=== PATIENT | female | born 1990 | race Caucasian/White ===

== ENCOUNTER 2019-06-20 16:13 | Emergency (ER) | payer SELFPAY ==
[~2019-06-20] VITALS: Ht 172.7 cm; Wt 104.5 kg
[2019-06-20 16:21] VITALS: BP 123/73; TEMP 97.6
[2019-06-20] MEDS ORDERED: ZOVIRAX400 MG PO (16:58)
[2019-06-20] MEDS ORDERED: PREDNISONE20 MG PO (16:58)
[2019-06-20] MEDS ORDERED: LACRI-LUBE1 OIN OS (16:58)
[2019-06-20 17:20] VITALS: PULSE 80
== END 2019-06-20 17:20 | disposition home or self-care (01) ==
LOC: COL.ER 16:13
DX: G43.909 Migraine, unspecified, not intractable, without status migrainosus (principal)
CPT/HCPCS: J7512

== ENCOUNTER 2019-07-22 20:23 | Emergency (ER) | payer OTHER ==
[~2019-07-22] VITALS: Ht 172.7 cm; Wt 113.6 kg
[~2019-07-22 20:23] MED LIST: LACRI-LUBE1 OIN OS; PREDNISONE20 MG PO; ZOVIRAX400 MG PO
[2019-07-22 20:38] VITALS: BP 147/73; TEMP 97.4
[2019-07-22] MEDS ORDERED: NORCO 325 MG-51 TAB PO (22:20)
[2019-07-22] MEDS ORDERED: FLEXERIL 1010 MG/TAB PO (22:20)
[2019-07-22 22:40] VITALS: PULSE 78
== END 2019-07-22 22:53 | disposition home or self-care (01) ==
LOC: COL.ER 20:23
DX: S39.012A Strain of muscle, fascia and tendon of lower back, initial encounter (principal); X50.0XXA Overexertion from strenuous movement or load, initial encounter; Y92.59 Other trade areas as the place of occurrence of the external cause

== ENCOUNTER 2020-04-15 06:46 | Emergency (ER) | payer MEDICAID ==
[~2020-04-15] VITALS: Ht 175.3 cm; Wt 109.1 kg
[~2020-04-15 06:46] MED LIST changes: +AMOXICILLIN 8751 TAB PO; +FLEXERIL 1010 MG/TAB PO; +NORCO 325 MG-51 TAB PO
[2020-04-15 06:51] VITALS: TEMP 97.4
[2020-04-15] MEDS ORDERED: PREDNISONE20 MG PO (07:33)
[2020-04-15 08:04] VITALS: BP 122/81; PULSE 82
== END 2020-04-15 08:07 | disposition home or self-care (01) ==
LOC: COL.ER 06:46
DX: T78.40XA Allergy, unspecified, initial encounter (principal)
CPT/HCPCS: J7512

== ENCOUNTER 2020-10-28 16:05 | Emergency (ER) | payer MEDICAID ==
[~2020-10-28] VITALS: Ht 172.7 cm; Wt 109.1 kg
[2020-10-28 16:15] VITALS: TEMP 98.2
[2020-10-28 17:33] LABS: ALANINE AMINOTRANSFERASE 38 U/L (4-34); ALBUMIN 4.2 gm/dL (3.5-5.0); ALKALINE PHOSPHATASE 92 U/L (50-136); ANION GAP 9 mmol/L (7-16); AST,SGOT 31 U/L (15-37); BILIRUBIN,TOTAL 0.2 mg/dL (0.0-1.0); BLOOD UREA NITROGEN 8 mg/dL (7-17); CALCIUM 8.9 mg/dL (8.4-10.2); CARBON DIOXIDE 21 mmol/L (22-30); CHLORIDE 111 mmol/L (98-107); CREATININE, serum 0.68 (0.52-1.25); GLUCOSE 102 mg/dL (74-106); POTASSIUM 3.8 mmol/L (3.4-5.0); SODIUM 141 mmol/L (137-145); TOTAL PROTEIN 7.4 gm/dL (6.4-8.2)
[2020-10-28 17:36] LABS: BASO % 0.4 % (0.0-2.0); EOS # 0.4 (0.0-0.7); EOS % 4.2 % (0-4.0); GRAN # 4.7 (1.4-6.5); GRAN % 54.9 % (42.2-75.2); HEMOGLOBIN 13.3 g/dl (12.5-16.0); LYMPH # 2.7 (1.2-3.4); LYMPH % 32.2 % (20.0-51.0); MEAN CELL VOLUME 87 fl (80.0-100.0); MEAN CORPUSCULAR HEMOGLOBIN 30 pg (27.0-31.0); MEAN CORPUSCULAR HGB CONC 34 g/dl (33.0-37.0); MEAN PLATELET VOLUME 12.1 fl (7.4-10.4); MONO # 0.7 (0.1-0.6); MONO % 8.1 % (1.7-9.3); PLATELET COUNT 220 K/mm3 (130-400); RED BLOOD COUNT 4.47 M/mm3 (4.10-5.30); REDCELL DISTRIBUTION WIDTH-CV 12.3 % (11.5-14.5)
[2020-10-28 17:45] LABS: TROPONIN-I < 0.012 ng/mL (0.000-0.035)
[2020-10-28] MEDS ORDERED: DOXYCYCLINE HY100 MG PO (19:48)
[2020-10-28] MEDS ORDERED: PREDNISONE20 MG PO (19:48)
[2020-10-28 20:43] VITALS: BP 135/89; PULSE 76
== END 2020-10-28 20:48 | disposition home or self-care (01) ==
LOC: COL.ER 16:05
PROVIDERS: Nurse Practitioner
DX: J20.9 Acute bronchitis, unspecified (principal); F17.210 Nicotine dependence, cigarettes, uncomplicated; Z20.822 Contact with and (suspected) exposure to COVID-19; Z79.52 Long term (current) use of systemic steroids
CPT/HCPCS: J7512; Q9967

== ENCOUNTER 2021-03-21 16:10 | Emergency (ER) | payer MEDICAID ==
[~2021-03-21 16:10] MED LIST changes: +DOXYCYCLINE HY100 MG PO
== END 2021-03-21 16:16 | disposition left against medical advice (07) ==
LOC: COL.ER 16:10
DX: R69 Illness, unspecified (principal)

== ENCOUNTER 2021-11-09 21:08 | Emergency (ER) | payer MEDICAID ==
[~2021-11-09] VITALS: Ht 175.3 cm; Wt 113.6 kg
[2021-11-09 21:23] VITALS: BP 124/80; TEMP 97.2
[2021-11-09 23:09] VITALS: PULSE 72
== END 2021-11-09 23:12 | disposition home or self-care (01) ==
LOC: COL.ER 21:08
DX: S52.511A Displaced fracture of right radial styloid process, initial encounter for closed fracture (principal); Z28.310 Unvaccinated for COVID-19; V86.95XA Unspecified occupant of 3- or 4- wheeled all-terrain vehicle (ATV) injured in nontraffic accident, initial encounter; Y92.410 Unspecified street and highway as the place of occurrence of the external cause

== ENCOUNTER 2021-11-19 22:55 | Emergency (ER) | payer MEDICAID ==
[~2021-11-19] VITALS: Ht 175.3 cm; Wt 113.6 kg
[2021-11-19 23:10] VITALS: BP 120/63; PULSE 91; TEMP 97.5
== END 2021-11-20 00:37 | disposition home or self-care (01) ==
LOC: COL.ER 22:55
DX: M25.531 Pain in right wrist (principal); F17.210 Nicotine dependence, cigarettes, uncomplicated; Z87.81 Personal history of (healed) traumatic fracture; Z28.310 Unvaccinated for COVID-19

== ENCOUNTER 2021-12-05 19:31 | Emergency (ER) | payer MEDICAID ==
[~2021-12-05] VITALS: Ht 175.3 cm; Wt 109.1 kg
[2021-12-05 19:42] VITALS: BP 123/86; TEMP 98.4
[2021-12-05] MEDS ORDERED: AMOXICILLIN 8751 TAB PO (21:19)
[2021-12-05] MEDS ORDERED: NORCO 325 MG-51 TAB PO (21:20)
[2021-12-05 21:27] VITALS: PULSE 97
== END 2021-12-05 21:27 | disposition home or self-care (01) ==
LOC: COL.ER 19:31
DX: K02.9 Dental caries, unspecified (principal); Z28.310 Unvaccinated for COVID-19

== ENCOUNTER 2022-03-08 23:52 | Emergency (ER) | payer MEDICAID ==
[~2022-03-08] VITALS: Ht 172.7 cm; Wt 118.2 kg
[2022-03-08 23:55] VITALS: TEMP 97.2
[2022-03-09] MEDS ORDERED: CLEOCIN HCL300 MG PO (00:10)
[2022-03-09] MEDS ORDERED: NORCO 325 MG-51 TAB PO (00:10)
[2022-03-09 00:35] VITALS: BP 128/61; PULSE 80
== END 2022-03-09 00:40 | disposition home or self-care (01) ==
LOC: COL.ER 23:52
DX: K04.7 Periapical abscess without sinus (principal)

== ENCOUNTER 2022-07-13 18:46 | Emergency (ER) | payer MEDICAID ==
[~2022-07-13] VITALS: Ht 175.3 cm; Wt 113.6 kg
[~2022-07-13 18:46] MED LIST changes: +CLEOCIN HCL300 MG PO
[2022-07-13 18:50] VITALS: BP 118/82; TEMP 97.6
[2022-07-13 19:19] LABS: STREP SCREEN POSITIVE
[2022-07-13] MEDS ORDERED: PEN-VEE K500 MG PO (19:54)
[2022-07-13 20:11] VITALS: PULSE 89
== END 2022-07-13 20:12 | disposition home or self-care (01) ==
LOC: COL.ER 18:46
PROVIDERS: Personal Emergency Response Attendant
DX: J02.9 Acute pharyngitis, unspecified (principal); F17.200 Nicotine dependence, unspecified, uncomplicated; Z28.310 Unvaccinated for COVID-19
CPT/HCPCS: J0696; J1100

== ENCOUNTER 2023-06-21 14:45 | Emergency (ER) | payer MEDICAID ==
[~2023-06-21] VITALS: Ht 175.3 cm; Wt 104.5 kg
[~2023-06-21 14:45] MED LIST changes: +DOXYCYCLINE 10100 MG PO; +PEN-VEE K500 MG PO; +PREDNISONE50 MG PO; +ZOFRAN ODT4 MG PO
[2023-06-21] MEDS ORDERED: ZITHROMAX Z PA250 MG PO (16:25)
[2023-06-21 16:47] VITALS: BP 132/83; PULSE 91; TEMP 97.3
== END 2023-06-21 16:47 | disposition home or self-care (01) ==
LOC: COL.ER 14:45
DX: J40 Bronchitis, not specified as acute or chronic (principal); F17.200 Nicotine dependence, unspecified, uncomplicated

== ENCOUNTER 2023-07-21 09:35 | Emergency (ER) | payer SELFPAY ==
[~2023-07-21] VITALS: Ht 175.3 cm; Wt 109.1 kg
[~2023-07-21 09:35] MED LIST changes: +ZITHROMAX Z PA250 MG PO
[2023-07-21 09:40] VITALS: TEMP 97.6
[2023-07-21] MEDS ORDERED: MEDROL 4MG DOSPA4 MG PO (10:14)
[2023-07-21] MEDS ORDERED: Lidocaine 4% Topical Patch TP ONE (10:15)
[2023-07-21] MEDS ORDERED: Ketorolac 30 MG/ML VIAL IM ONE (10:15)
[2023-07-21] MEDS ORDERED: FLEXERIL 1010 MG/TAB PO (10:23)
[2023-07-21 10:35] VITALS: BP 126/76; PULSE 88
== END 2023-07-21 10:35 | disposition home or self-care (01) ==
LOC: COL.ER 09:35
DX: M54.50 Low back pain, unspecified (principal); F17.210 Nicotine dependence, cigarettes, uncomplicated; V48.5XXA Car driver injured in noncollision transport accident in traffic accident, initial encounter; Y92.410 Unspecified street and highway as the place of occurrence of the external cause
CPT/HCPCS: J1885; J2360

== ENCOUNTER 2023-08-11 15:33 | Emergency (ER) | payer MEDICAID ==
[~2023-08-11] VITALS: Ht 175.3 cm; Wt 113.6 kg
[~2023-08-11 15:33] MED LIST changes: +MEDROL 4MG DOSPA4 MG PO
[2023-08-11 15:45] VITALS: BP 118/80; TEMP 97.5
[2023-08-11 16:42] LABS: CALCIUM 8.9 mg/dL (8.4-10.2); CREATININE, serum 0.77 mg/dL (0.57-1.11); POTASSIUM 3.5 mmol/L (3.5-4.5)
[2023-08-11] MEDS ORDERED: ASPERCREME1 EACH TP (16:57)
[2023-08-11] MEDS ORDERED: TORADOL 10MG TA10 MG PO (16:57)
[2023-08-11] MEDS ORDERED: Lidocaine 4% Topical Patch TP ONE (17:00)
[2023-08-11 17:08] VITALS: PULSE 94
== END 2023-08-11 17:15 | disposition home or self-care (01) ==
LOC: COL.ER 15:33
PROVIDERS: Emergency Medicine
DX: M62.830 Muscle spasm of back (principal); F17.210 Nicotine dependence, cigarettes, uncomplicated